=== PATIENT | male | born 1960 | race Two or more races ===

== ENCOUNTER 2017-03-06 21:57 | Emergency (ER) | payer MEDICARE, MEDICAID ==
[~2017-03-06] VITALS: Ht 167.6 cm; Wt 59.0 kg
[2017-03-06] MEDS ORDERED: GABAPENTIN300 MG ORAL (22:15)
[2017-03-06] MEDS ORDERED: LANTUS SOL100 UNIT/1 SUBQ (22:15)
[2017-03-06] MEDS ORDERED: METFORMIN HCL1000 M1 ORAL (22:15)
[2017-03-06] MEDS ORDERED: PERCOCET 10-321 EACH ORAL (22:15)
[2017-03-06] MEDS ORDERED: DICLOFENAC POTA50 MG PO (22:15)
--- NOTE | 2017-03-06 22:58 | Emergency Room Report ---
History of Present Illness General Chief Complaint: Back Pain-No Injury Source: Patient Present Illness HPI Is a 55-year-old male with a history of back pain. He is taking pain medication already. Present with chief complaint of lower back pain radiating to the right leg. No fever or chills. No nausea no vomiting. Pain is 9/10. Noncontrast about a year. No fever. No trauma. Movement made it worse. Pain medication not helping much. Allergies: Coded Allergies: No Known Allergies (Unverified , 03/06/17) Patient History Past Medical History: see triage record, old chart reviewed, DM Past Surgical History: other Pertinent Family History: none Social History: Denies: smoking Immunizations: other Reviewed Nursing Documentation: PMH: Agreed, PSxH: Agreed Nursing Documentation-PMH Past Medical History: No History, Except For Hx Hypertension: Yes Hx Diabetes: Yes Review of Systems Eye: Denies: blurred vision, eye pain ENT: Denies: ear pain, nose congestion, throat swelling Respiratory: Denies: cough, shortness of breath Cardiovascular: Denies: chest pain, palpitations Gastrointestinal: Denies: abdominal pain, diarrhea, nausea, vomiting Musculoskeletal: Reports: back pain, Denies: joint pain Skin: Denies: rash Neurological: Denies: headache, numbness Endocrine: Denies: increased thirst, increased urine Hematologic/Lymphatic: Denies: easy bruising All Other Systems: negative except mentioned in HPI Physical Exam Vital Signs Date Time Temp Pulse Resp B/P Pulse Ox O2 Delivery O2 Flow Rate FiO2 03/06/17 22:10 98.1 100 14 148/74 98 Room Air vitals normal Sp02 EP Interpretation: reviewed, normal General Appearance: well appearing, no apparent distress, alert Head: normocephalic, atraumatic Eyes: bilateral eye EOMI, bilateral eye PERRL ENT: hearing grossly normal, normal pharynx Neck: full range of motion, supple, no meningismus Respiratory: chest non-tender, lungs clear, normal breath sounds Cardiovascular #1: regular rate, rhythm, no murmur Gastrointestinal: normal bowel sounds, non tender, no mass, no organomegaly, no bruit, non-distended Musculoskeletal: gait/station normal, normal range of motion, other - Tenderness over the right lower lumbar area. No percussive tenderness. No step -off. Neurologic: alert, oriented x3 Psychiatric: mood/affect normal Skin: warm/dry Medical Decision Making Diagnostic Impression: Primary Impression: Back pain Qualified Codes: M54.41 - Lumbago with sciatica, right side ER Course Patient presents with acute exacerbation of chronic back pain. He does have a history of herniated disc. He is regular epidural shots. He is out of his narcotic. No evidence of cauda equina syndrome, spinal after abscess, or neoplastic process. We'll discharge home. No trauma. Last Vital Signs Date Time Temp Pulse Resp B/P Pulse Ox O2 Delivery O2 Flow Rate FiO2 03/06/17 22:10 98.1 100 14 148/74 98 Room Air Status: improved Disposition: HOME, SELF-CARE Condition: Stable Scripts Hydrocodone/Acetaminophen 7.5-325* (HYDROCODON-ACETAMINOPH 7.5-325*) 1 Each Tablet 1 TAB ORAL Q6H Y for For Pain, #30 TAB 0 Refills Prov: HERNAN SANTOS M.D. 03/07/17 Referrals: TOM SHEFFIELD MD (PCP) Patient Instructions: Sciatica Additional Instructions: Followup with your DrMargie in 7 days. Return if worse. HERNAN SANTOS M.D. Mar 06, 2017 22:58
[2017-03-06] MEDS ORDERED: HYDROmorphone 1mg/ml Carpuject IM ONE (23:00)
[2017-03-07] MEDS ORDERED: HYDROCODON-ACE1 EA16 ORAL (00:06)
[2017-03-07 00:14] VITALS: BP 105/70
== END 2017-03-07 00:23 | disposition home or self-care (01) ==
LOC: EDBD 22:35 → EMR 22:35
DX: M54.5 Low back pain (principal); G89.29 Other chronic pain; I10 Essential (primary) hypertension; E11.9 Type 2 diabetes mellitus without complications
CPT/HCPCS: 96372; 99283; J1170